=== PATIENT | female | born 2005 | race Two or more races ===

== ENCOUNTER → 2025-01-03 | Outpatient (CLI) | payer OTHER, SELFPAY ==
--- NOTE | 2025-01-03 14:02 | XR_ITS ---
Examination: PA lateral chest 2 views TECHNIQUE: Upright PA lateral chest 2 views Exam date and time: January 03, 2025 1555 hours Comparison January 16, 2018 INDICATIONS: Coughing this week. FINDINGS: Normal heart size. Lungs are clear. The osseous structures are intact IMPRESSION: No active disease
== END | disposition home or self-care (01) ==
PROVIDERS: PCP Internal Medicine; Referring Provider Internal Medicine; Visit Provider Internal Medicine
DX: R05.1 Acute cough (principal)
CPT/HCPCS: 71046

== ENCOUNTER 2025-07-27 21:16 | Emergency (ER) | payer OTHER, SELFPAY ==
[2025-07-27 21:29] VITALS: BP 121/83; PULSE 99; RESP 18; TEMP 36.9; O2SAT 98
--- NOTE | 2025-07-27 21:34 | XR_ITS ---
Examination: CT abdomen with intravenous contrast CT pelvis with intravenous contrast 2-D coronal reconstructions 2-D sagittal reconstructions Date and time of exam: July 27, 2023, 1120 hours INDICATIONS: Right lower abdominal pain beginning this morning. CTDI: vol (mGy) 18.1 DLP: (mGycm) 1006 Technique: Multiple axial sections of the abdomen and pelvis have been obtained. 64 slice high-resolution scanner used. 3 mm axial sections have been obtained, post intravenous injection 60 cc [id number] no focal 2D sagittal and coronal reconstructions FINDINGS: Liver or splenic lesions No gallstones No pancreatic or adrenal mass No renal or ureteral calculi, no hydronephrosis Aorta normal size Normal appendix No bowel obstruction No pelvic mass Bladder intact IMPRESSION: Normal appendix No renal calculi No hydronephrosis or ureteral calculi
--- NOTE | 2025-07-27 21:34 | PD.EDABDPN ---
ED Abdominal Pain RME/HPI General Chief Complaint: Abdominal Pain Stated complaint: ABD PAIN Time seen by provider: 07/27/25 21:29 Arrival date/time: 07/27/25 21:16 Source: patient, RN notes reviewed and old records reviewed Mode of arrival: ambulatory Limitations: no limitations RME / HPI RME / HPI narrative: 19yof presents to the ED for RLQ abdominal pain that initiated this morning. Patient reports nausea but no vomiting. No fever, diarrhea or urinary symptoms reported. No medications or treatments since onset. Related Data Previous Rx's ?Medication ?Instructions ?Recorded famotidine 20 mg tablet 20 mg PO QDAY #30 tabs 10/02/22 dicyclomine 20 mg tablet 20 mg PO Q6HR PRN abdominal pain 07/28/25 #20 tabs ibuprofen 600 mg tablet 600 mg PO Q6H PRN pain #20 tabs 07/28/25 ondansetron 4 mg disintegrating 4 mg PO Q6H PRN nausea and 07/28/25 tablet vomiting #10 tabs Allergies Allergy/AdvReac Type Severity Reaction Status Date / Time No Known Allergies Allergy Verified 07/27/25 21:17 Review of Systems Review of Systems Systems Reviewed: All systems reviewed, normal except as documented Constitutional Constitutional: Denies chills and Denies fever(s) Gastrointestinal Gastrointestinal: Reports abdominal pain, Denies loose stools, Reports nausea and Denies vomiting Genitourinary Genitourinary: Denies dysuria, Denies flank pain and Denies hematuria Past Medical History Past Medical History GASTROINTESTINAL: Positive Obesity Surgical History OTHER SURGICAL HX: Denies past surgical history Social History SMOKING STATUS: Never smoker SUBSTANCE USE: does not use ALCOHOL: Never ED Exam General Limitations: Present no limitations General appearance: Present alert, in no apparent distress and obese Head Head exam: Present atraumatic and normocephalic Eye Eye exam: Present normal appearance, PERRL and EOMI ENT ENT exam: Present normal exam and mucous membranes moist Neck Neck exam: Present normal inspection and full ROM Chest Chest inspection: Present normal inspection and symmetric chest wall rise Respiratory Respiratory exam: Present normal lung sounds bilaterally; Absent respiratory distress Cardiovascular Cardiovascular exam: Present regular rate and normal rhythm Abdominal Exam Abdominal exam: Present soft and tenderness (RLQ, mild); Absent distention, guarding or rebound Extremities Exam Extremities exam: Present normal inspection and full ROM Back Exam Back exam: Absent CVA tenderness (R) or CVA tenderness (L) Neurological Exam Neurological exam: Present alert and oriented X3 Psychiatric Psychiatric exam: Present normal affect and normal mood Skin Skin exam: Present warm, dry, intact and normal color Course Quality Measures none Orders Category Date Time Status CT Screening NOW Care 07/27/25 21:34 Completed IV [Insert IV] NOW Care 07/27/25 22:[address] abdomen pelvis w con Stat Exams 07/27/25 21:34 Completed CBC Stat Lab 07/27/25 21:52 Completed CMP [Comprehensive Metabolic Panel] Stat Lab 07/27/25 21:52 Completed HCG Qualitative,Urine Stat Lab 07/27/25 22:12 Completed Lipase Stat Lab 07/27/25 21:52 Completed UA [Urinalysis] Stat Lab 07/27/25 22:12 Completed Morphine* Inj Med 07/27/25 22:15 Discontinued 4 mg IV X1 ONE Ondansetron Inj [Zofran Inj] Med 07/27/25 22:15 Discontinued 4 mg IVP X1 ONE Vital Signs Vital signs: Vital Signs Temperature 98.4 F 07/27/25 21:29 Pulse Rate 99 07/27/25 21:29 Respiratory Rate 18 07/27/25 21:29 Blood Pressure 121/83 07/27/25 21:29 Pulse Oximetry (%) 98 07/27/25 21:29 Oxygen Delivery Method Room Air 07/27/25 21:29 Abdominal Pain MDM MDM Narrative MDM Narrative:: 19yof presents to the ED for RLQ abdominal pain that initiated this morning. Patient reports nausea but no vomiting. No fever, diarrhea or urinary symptoms reported. No medications or treatments since onset. Patient updated on labs and imaging. ED workup reassuring. Encouraged rest, fluids, symptomatic treatment prn. Stable for discharge, RTED precautions given. Patient data External records reviewed:: [facility] previous records (10/02/2022 ED visit for heartburn) Clinical information provided by:: patient Social determinants that could affect healthcare access:: other (specify) (Poor access to healthcare, unemployed) Patient has the following chronic illnesses:: Obesity How is presenting disease/condition affected by chronic disease/condition?: uneffected by Evaluation data The following diagnostics were reviewed and interpreted by me:: lab results and radiology exam(s) Lab and/or radiology exams considered but not ordered:: None Interpretation Summary: No significant leukocytosis No anemia No LILLY No UTI Negative upreg CT abd/pelvis: IMPRESSION: Normal appendix No renal calculi No hydronephrosis or ureteral calculi Dictated By: Robin Figueroa MD Medications / Prescriptions Medications or Prescriptions considered but not ordered:: No antibiotics recommended at this time Medication administrations:: Medication Administration History Discontinued Medications Morphine Sulfate (Morphine Sulf Inj 4 Mg/Ml Vial) 4 mg IV X1 ONE Stop: 07/27/25 22:16 Last Admin: 07/27/25 22:42 Dose: 4 mg Documented By: EDITA Ondansetron HCl (Ondansetron Inj 2 Mg/Ml Inj 2 Ml) 4 mg IVP X1 ONE; Protocol Stop: 07/27/25 22:16 Last Admin: 07/27/25 22:42 Dose: 4 mg Documented By: EDITA Above medications administered in ED Consultations Consultation(s) initiated? (list below): No Diagnosis Differential diagnosis abdominal pain: abdominal pain, acute appendicitis, calculus of kidney, constipation and gastroenteritis Most likely diagnosis given after review of the tests above:: Abdominal pain Admission Indicated Admission indicated?: not indicated Admission Request Was there a request for admission?: No Disposition Plan Disposition Plan: Discharge Discharge Attestation Discharge Attestation: The patient and all family members were given an opportunity to ask questions and understood the discharge instructions. Discharge instructions specifically effects, indications for sooner follow up or return to the emergency department, and the expected course of current diagnosis. Patient condition: Stable Discharge Plan Plan Patient Disposition: HOME (Self Care) Patient condition on transfer: Stable Prescriptions/Referrals Prescriptions/Med Rec: New ibuprofen 600 mg tablet 600 mg PO Q6H PRN (Reason: pain) Qty: 20 0RF dicyclomine 20 mg tablet 20 mg PO Q6HR PRN (Reason: abdominal pain) Qty: 20 0RF ondansetron 4 mg tablet,disintegrating 4 mg PO Q6H PRN (Reason: nausea and vomiting) Qty: 10 0RF No Action famotidine 20 mg tablet 20 mg PO QDAY Qty: 30 0RF Referrals: Octavio Fuentes MD [Primary Care Provider, Nephrology] - In 1 week Problem List Clinical Impression: Abdominal pain Patient/Caregiver Discharge Instructions Education Materials: ED Abdominal Pain Unkn Cause Fem Print Language: [place] Citizen Stand Alone Forms: Nereida Award Info., Patient Portal Info Letter PA/KENNEL SUPERVISOR Supervising Physician PA/KENNEL SUPERVISOR Supervising Physician: Eliazar
[2025-07-27 22:10] LABS: Basophils # (Auto) 0.1 Thou/mm3 (0.0-0.2); Basophils % (Auto) 1 % (0-2.5); Eosinophils # (Auto) 0.1 Thou/mm3 (0.0-0.5); Eosinophils % (Auto) 1 % (0-10); Hematocrit 36.8 % (36.0-46.0); Hemoglobin 11.5 g/dL (12.0-16.0); Immature Granulocytes Auto 0.04 Thou/mm3 (0.00-0.00); Lymphocytes # (Auto) 3.0 Thou/mm3 (1.0-5.0); Lymphocytes % (Auto) 25 % (10-50); Mean Corpuscular HGB Conc 31.3 g/dl (31.0-37.0); Mean Corpuscular Hemoglobin 25.8 pg (25.0-35.0); Mean Corpuscular Volume 83 fL (80-100); Monocytes # (Auto) 1.0 Thou/mm3 (0.0-0.8); Monocytes % (Auto) 8 % (0-12); Neutrophils # (Auto) 7.8 Thou/mm3 (1.8-7.7); Neutrophils % (Auto) 65 % (37-80); Nucleated Red Blood Cell # 0.00 Thou/mm3 (0.00-0.00); Nucleated Red Blood Cell % 0 /100 WBC (0); Platelet Count 343 Thou/mm3 (140-440); RDW Standard Deviation 43.9 fL (36.4-46.3); Red Blood Count 4.46 Miln/mm3 (4.00-5.20); White Blood Count 11.9 Thou/mm3 (4.5-11.0)
[2025-07-27 22:13] VITALS: BP 131/91; PULSE 105; RESP 16; TEMP 37.6; O2SAT 99
[2025-07-27 22:37] LABS: Alanine Aminotransferase 14 U/L (10-49); Albumin, Serum 4.5 gm/dL (3.5-5.0); Albumin/Globulin Ratio 1.8 (1.2-2.2); Alkaline Phosphatase 65 U/L (46-116); Anion Gap 10 (7-16); Aspartate Amino Transferase 17 U/L (0-34); BUN/Creatinine Ratio 15 Ratio (12-20); Bilirubin,Total 0.2 mg/dL (0.3-1.2); Blood Urea Nitrogen 9 mg/dL (9-23); Calcium 9.0 mg/dL (8.3-10.6); Calcium (Corrected) 9.0 mg/dL (8.5-10.1); Carbon Dioxide 25.3 mMol/L (20.0-31.0); Chloride 106 mMol/L (98-107); Creatinine (Component) 0.6 mg/dL (0.6-1.3); Estimated Creatinine Clearance 175.5 mL/min (>60); Globulin 2.5 gm/dL (2.3-3.5); Glucose 105 mg/dL (74-106); Lipase 36 U/L (12-53); Osmolality,Calculated 279 (275-295); Potassium 4.0 mMol/L (3.4-5.1); Sodium 141 mMol/L (136-145); Total Protein 7.0 gm/dL (5.7-8.2); eGFR > 60 See Note
[2025-07-27] MEDS: MORPHINE SULF INJ 4 MG/ML VIAL IV (22:42)
[2025-07-27] MEDS: ONDANSETRON INJ 2 MG/ML INJ 2 ML 4 MG IVP (22:42)
[2025-07-27 22:43] LABS: Collection Type, Urine Clean Catch
[2025-07-27 22:51] LABS: HCG Qualitative,Urine Negative
[2025-07-27 22:52] LABS: Bilirubin,Urine Negative (Negative); Blood,Urine Negative (Negative); Clarity,Urine Clear (Clear/Hazy); Color,Urine Yellow (Lt Yel-Yel); Glucose, Urine Negative (Negative); Ketones,Urine Negative (Negative); Leukocyte Esterase,Urine Negative (Negative); Nitrite,Urine Negative (Negative); PH,Urine 5.5 (5.0-7.0); Protein,Urine Trace (Neg - Trace); RBC,Urine 5 /hpf (0-3); Specific Gravity,Urine 1.033 (1.001-1.035); Squamous Epithelial Cell,Urine 5 /hpf (0-5); Urobilinogen,Urine Negative mg/dL (0.0-1.0); WBC,Urine 4 /hpf (0-5)
[2025-07-28 00:38] VITALS: BP 127/76; PULSE 83; RESP 16; TEMP 36.8; O2SAT 98
== END 2025-07-28 00:40 | disposition home or self-care (01) ==
PROVIDERS: Physician Assistant; Emergency Provider Emergency Medicine; PCP Internal Medicine
DX: R10.9 Unspecified abdominal pain (principal); R11.0 Nausea
CPT/HCPCS: 36415; 74177; 80053; 81001; 81025; 83690; 85025; 96374; 99284; A4649; J2270; J2405; Q9967